=== PATIENT | male | born 1960 | race Caucasian/White ===

== ENCOUNTER 2021-06-25 12:04 | Inpatient (IN) ==
[2021-06-25] MEDS ORDERED: 0.9 % Sodium Chloride 1,000 ML IVC ONE (12:22)
[2021-06-25 12:45] LABS: Prothrombin Time 21.9 Seconds (9.4-12.1)
[2021-06-25 12:47] LABS: Activated Partial Thrombo Time 26.4 Seconds (26.0-36.0)
[2021-06-25 13:05] LABS: Albumin 3.7 g/dL (3.5-5.7); Albumin/Globulin Ratio 1.4 (1.1-2.2); Bilirubin,Total 17.1 mg/dL (0.3-1.0); Calcium 9.8 mg/dL (8.6-10.3); Globulin 2.6 g/dL (2.4-3.5); Magnesium 2.2 mg/dL (1.6-2.6); Potassium 3.8 mEq/L (3.5-5.1); Total Protein 6.3 g/dL (6.4-8.9); Troponin I 0.07 ng/mL (< 0.04)
[2021-06-25] MEDS ORDERED: Ondansetron 4 MG/2 ML VIAL IVP ONE (13:28)
[2021-06-25] MEDS ORDERED: Morphine Sulfate 2 MG/ML SYRINGE IVP ONE (13:28)
[2021-06-25] MEDS ORDERED: Lactulose Oral Soln 20 GM/30 ML UDC PO ONE (13:28)
[2021-06-25 13:48] LABS: Bacteria,Urine Few per hpf (None-Few); Bilirubin,Urine Moderate (Negative); Blood,Urine Small (Negative); Clarity,Urine Turbid (Clear); Color,Urine Dark-Yellow (Yellow); Glucose,Urine (UA) Normal (Normal); Hyaline Casts,Urine Many per lpf (None Seen); Ketones,Urine Negative (Negative); Leukocyte Esterase,Urine Negative (Negative); Mucus,Urine Few per lpf (None-Few); Nitrite,Urine Negative (Negative); PH,Urine 5.5 pH Units (5.0-8.0); Protein,Urine Trace mg/dL (Neg-Trace); RBC,Urine 0-3 per hpf (0-3); Renal Epithelial Cells,Urine Few per hpf (None-Few); Specific Gravity,Urine 1.019 (1.010-1.025); Squamous Epithelial Cell,Urine Few per hpf (None-Few); Transitional Epi Cells,Urine Few per hpf (None-Few); WBC,Urine 0-3 per hpf (0-3)
[2021-06-25 13:55] LABS: Hematocrit 32.1 % (37.5-50.1); Hemoglobin 11.9 g/dL (12.9-16.9); Immature Platelets 9.9 % (1.1-6.1); Mean Corpuscular HGB Conc 37.1 g/dL (31.6-35.5); Mean Corpuscular Hemoglobin 33.2 pg (28.0-33.3); Mean Corpuscular Volume 89.7 fL (83.0-100.0); Mean Platelet Volume 11.5 fL (9.4-12.4); Monocytes # 0.6 K/mcL (0.0-1.3); Nucleated Red Blood Cells 3.8 /100 WBC (0); Platelet Count 76 K/mcL (140-400); Red Blood Count 3.58 M/mcL (4.19-5.50); Red Cell Distribution Width 13.9 % (11.5-14.5); White Blood Count 10.1 K/mcL (4.3-11.1)
[2021-06-25] MEDS ORDERED: Piperacillin/Tazobactam 3.375 GM in 0.9 % Sodium Chloride Mini Bag 100 ML IVPB ONE (13:59)
[2021-06-25 14:14] LABS: Lymphocytes # 1.5 K/mcL (0.6-4.6); Neutrophils # 7.3 K/mcL (1.6-8.9)
[2021-06-25 14:16] LABS: Platelet Estimate Decreased (Normal)
[2021-06-25] MEDS ORDERED: Naloxone 0.4 MG/ML INJ IVP PRN (14:29)
[2021-06-25] MEDS ORDERED: Melatonin 3 MG TABLET PO PRN (14:29)
[2021-06-25] MEDS ORDERED: *HR* HYDROcodone/Acet 5/325 mg TABLET PO PRN (14:29)
[2021-06-25] MEDS ORDERED: Milk and Molasses Enema 200 ML RC ONE (16:10)
[2021-06-25] MEDS: *HR* OxyCODONE Immed Rel 5 MG TABLET PO PRN (16:32)
[2021-06-25] MEDS: Ondansetron ODT 4 MG TAB.RAPDIS SL PRN (16:36)
[2021-06-25 18:05] LABS: Calcium 9.5 mg/dL (8.6-10.3); Potassium 3.8 mEq/L (3.5-5.1); Troponin I 0.07 ng/mL (< 0.04)
[2021-06-25] MEDS ORDERED: 0.9 % Sodium Chloride 1,000 ML IVC SCH ×2 (18:15→23:46)
[2021-06-25] MEDS: 0.9 % Sodium Chloride 1,000 ML IVC SCH ×2 (18:40→18:41)
[2021-06-26] MEDS: Piperacillin/Tazobactam 3.375 GM in 0.9 % Sodium Chloride Mini Bag 100 ML IVPB SCH ×4 (00:24→23:46)
[2021-06-26 02:06] LABS: Eosinophils # 0.2 K/mcL (0.0-0.6); Hematocrit 30.5 % (37.5-50.1); Hemoglobin 11.1 g/dL (12.9-16.9); Immature Platelets 8.6 % (1.1-6.1); Mean Corpuscular HGB Conc 36.4 g/dL (31.6-35.5); Mean Corpuscular Hemoglobin 33.1 pg (28.0-33.3); Nucleated Red Blood Cells 3.3 /100 WBC (0); Red Blood Count 3.35 M/mcL (4.19-5.50); Red Cell Distribution Width 14.1 % (11.5-14.5); White Blood Count 9.7 K/mcL (4.3-11.1)
[2021-06-26 02:07] LABS: Platelet Count 71 K/mcL (140-400)
[2021-06-26 02:22] LABS: Magnesium 2.4 mg/dL (1.6-2.6); Phosphorous 5.2 mg/dL (2.7-4.5)
[2021-06-26 02:24] LABS: Lymphocytes # 0.4 K/mcL (0.6-4.6); Neutrophils # 8.3 K/mcL (1.6-8.9); Platelet Estimate Decreased (Normal)
[2021-06-26 03:20] LABS: Albumin 3.4 g/dL (3.5-5.7); Albumin/Globulin Ratio 1.4 (1.1-2.2); Bilirubin,Direct 9.8 mg/dL (0.0-0.2); Bilirubin,Indirect 8.2 mg/dL (0.0-1.0); Calcium 9.3 mg/dL (8.6-10.3); Globulin 2.5 g/dL (2.4-3.5); Potassium 4.1 mEq/L (3.5-5.1); Total Protein 5.9 g/dL (6.4-8.9)
[2021-06-26] MEDS: Ondansetron ODT 4 MG TAB.RAPDIS SL PRN ×2 (04:37→11:53)
[2021-06-26] MEDS: *HR* OxyCODONE Immed Rel 5 MG TABLET PO PRN (06:37)
[2021-06-26] MEDS ORDERED: Levalbuterol 1 PUFF INHALER IH PRN (07:53)
[2021-06-26] MEDS ORDERED: Levalbuterol 1 PUFF INHALER IH SCH (08:00)
[2021-06-26] MEDS: 0.9 % Sodium Chloride 1,000 ML IVC SCH ×8 (08:05→08:12)
[2021-06-26 09:30] LABS: Sodium, Urine 16.6 mEq/L
[2021-06-26] MEDS ORDERED: Milk and Molasses Enema 200 ML RC ONE ×2 (11:13→16:43)
[2021-06-26] MEDS: Levalbuterol Neb 0.63 MG/3 ML IH SCH ×3 (11:52→19:33)
[2021-06-26] MEDS ORDERED: Ketorolac 30 MG/ML VIAL IM PRN (16:32)
[2021-06-26] MEDS ORDERED: Octreotide 50 MCG/ML INJ IVP ONE (16:45)
[2021-06-26] MEDS ORDERED: Pantoprazole 40 MG VIAL IVP ONE (16:54)
[2021-06-26] MEDS: Pantoprazole 40 MG in 0.9 % Sodium Chloride Mini Bag 100 ML IVC SCH ×2 (18:50→23:46)
[2021-06-26] MEDS: Octreotide 400 MCG in 0.9 % Sodium Chloride 100 ML IVC SCH (18:54)
[2021-06-26] MEDS ORDERED: *HR* HYDROmorphone (PF) 1 MG/ML SYRINGE IVP ONE (21:43)
[2021-06-27] MEDS ORDERED: Haloperidol Lactate 5 MG/ML VIAL IVP ONE (00:54)
[2021-06-27 01:35] LABS: Eosinophils % 0.1 %; Hematocrit 29.1 % (37.5-50.1); Hemoglobin 10.7 g/dL (12.9-16.9); Mean Corpuscular HGB Conc 36.8 g/dL (31.6-35.5); Mean Corpuscular Hemoglobin 33.6 pg (28.0-33.3); Mean Corpuscular Volume 91.5 fL (83.0-100.0); Red Blood Count 3.18 M/mcL (4.19-5.50)
[2021-06-27 01:37] LABS: Basophils # 0.1 K/mcL (0.0-0.2); Basophils % 0.6 %; Immature Platelets 8.6 % (1.1-6.1); Lymphocytes % 10.9 %; Mean Platelet Volume 10.7 fL (9.4-12.4); Monocytes # 0.6 K/mcL (0.0-1.3); Monocytes % 6.2 %; Nucleated Red Blood Cells 4.5 /100 WBC (0); Red Cell Distribution Width 14.4 % (11.5-14.5); Segmented Neutrophils % 76.2 %; White Blood Count 9.5 K/mcL (4.3-11.1)
[2021-06-27 01:44] LABS: Neutrophils # 7.2 K/mcL (1.6-8.9); Platelet Count 67 K/mcL (140-400)
[2021-06-27 01:57] LABS: Albumin 3.4 g/dL (3.5-5.7); Albumin/Globulin Ratio 1.4 (1.1-2.2); Bilirubin,Total 20.2 mg/dL (0.3-1.0); Globulin 2.4 g/dL (2.4-3.5); Magnesium 2.8 mg/dL (1.6-2.6); Potassium 4.8 mEq/L (3.5-5.1); Total Protein 5.8 g/dL (6.4-8.9)
[2021-06-27 02:29] LABS: Platelet Estimate Decreased (Normal)
[2021-06-27] MEDS: Levalbuterol Neb 0.63 MG/3 ML IH SCH ×2 (03:59→08:11)
[2021-06-27] MEDS ORDERED: 0.9 % Sodium Chloride 1,000 ML IVC SCH ×2 (05:00→07:23)
[2021-06-27] MEDS ORDERED: *HR* Dextrose 50 % in Water (Syg) 50 ML SYRINGE ONE (05:42)
[2021-06-27] MEDS ORDERED: *HR* Dextrose 50 % in Water (Syg) 50 ML SYRINGE IVP ONE (05:50)
[2021-06-27] MEDS ORDERED: Pantoprazole 40 MG VIAL ONE (06:23)
[2021-06-27] MEDS: Pantoprazole 40 MG in 0.9 % Sodium Chloride Mini Bag 100 ML IVC SCH ×2 (06:26→06:42)
[2021-06-27] MEDS: Octreotide 400 MCG in 0.9 % Sodium Chloride 100 ML IVC SCH (06:42)
[2021-06-27 06:50] VITALS: TEMP 97.4
[2021-06-27] MEDS: Piperacillin/Tazobactam 3.375 GM in 0.9 % Sodium Chloride Mini Bag 100 ML IVPB SCH (07:59)
[2021-06-27 08:13] VITALS: O2SAT 97
[2021-06-27 09:45] VITALS: BP 136/117; PULSE 98
[2021-06-27] MEDS ORDERED: Morphine Sulfate 2 MG/ML SYRINGE IVP ONE (11:37)
[2021-06-27] MEDS ORDERED: *HR* LORazepam 2 MG/ML VIAL IVP PRN (11:39)
[2021-06-27] MEDS ORDERED: Haloperidol Lactate 5 MG/ML VIAL IVP PRN (11:39)
[2021-06-27] MEDS ORDERED: Atropine 1% Opth Drops 100 DROP/5 ML BOTTLE SL PRN (11:39)
[2021-06-27] MEDS ORDERED: Scopolamine Patch 1.5 MG PATCH.TD72 TD SCH (11:45)
[2021-06-27] MEDS ORDERED: Morphine Sulfate Oral CONC 10 MG/0.5 ML ORAL.SYG SL PRN (11:50)
== END 2021-06-27 15:39 | disposition expired | DRG 640 ==
LOC: EMEROOARM 12:04 → 2NNU 12:04
PROVIDERS: ADMIT Internal Medicine; ATTEND Internal Medicine